=== PATIENT | male | born 1975 | race American Indian/Alaskan Native ===

== ENCOUNTER 2020-04-27 12:53 | Emergency (ER) | payer OTHER ==
--- NOTE | 2020-04-27 14:39 | XRay Report ---
CHEST 2 VIEWS INDICATION / CLINICAL INFORMATION: Chest Pain. COMPARISON: None available. FINDINGS: SUPPORT DEVICES: None. HEART / MEDIASTINUM: No significant abnormality. LUNGS / PLEURA: No significant pulmonary or pleural abnormality. No pneumothorax. ADDITIONAL FINDINGS: No significant additional findings. IMPRESSION: 1. No acute findings. Signer Name: Reg Dickinson MD Signed: 04/27/2020 2:34 PM Workstation Name: [id number]
[2020-04-27 14:40] LABS: Basophils % (Auto) 0.6 % (0.0-1.8); Eosinophils # (Auto) 0.1 K/mm3 (0.0-0.4); Eosinophils % (Auto) 1.7 % (0.0-4.3); Hematocrit 43.6 % (35.5-45.6); Hemoglobin 14.3 gm/dl (11.8-15.2); Lymphocytes # (Auto) 1.8 K/mm3 (1.2-5.4); Lymphocytes % (Auto) 25.9 % (13.4-35.0); Mean Corpuscular HGB Conc 33 % (32-34); Mean Corpuscular Volume 82 fl (84-94); Monocytes # (Auto) 0.4 K/mm3 (0.0-0.8); Monocytes % (Auto) 5.8 % (0.0-7.3); Platelet Count 200 K/mm3 (140-440); Red Blood Count 5.33 M/mm3 (3.65-5.03); Red Cell Distribution Width 13.5 % (13.2-15.2)
[2020-04-27 14:49] LABS: INR 1.11 (0.87-1.13)
[2020-04-27] MEDS ORDERED: MORPHINE 4 MG/1 ML INJ IV ONE (14:52)
[2020-04-27] MEDS ORDERED: ASPIRIN 325 MG TAB PO ONE (14:52)
[2020-04-27 14:58] LABS: BUN/Creatinine Ratio 21; Blood Urea Nitrogen 21 mg/dL (9-20); Calcium 9.1 mg/dL (8.4-10.2); Hemolysis Index 29
[2020-04-27] MEDS ORDERED: ALUM-MAG HYDROXIDE-SIMETHICONE 200-200-20MG/5ML ORAL LIQD 30 ML PO ONE (14:58)
[2020-04-27 17:43] VITALS: BP 179/60
--- NOTE | 2020-04-27 18:28 | Emergency Department Report ---
ED Chest Pain HPI - General Chief Complaint: Chest Pain Stated Complaint: CHEST PAIN/ANXIETY Time Seen by Provider: 04/27/20 14:52 Source: patient Mode of arrival: Stretcher Limitations: No Limitations - History of Present Illness Initial Comments: Mr. Fisher is a 45-year-old male who presents with sudden onset of chest pain while he was working. He has sharp central chest pain 10 out of 10. He also has shortness of breath. Pain is persistent even at rest. Pain is been present for 4 to 5 hours. No fevers history of heart disease. Both parents had heart disease younger than 50s. He denies fever. Denies cough. Patient is a history of anxiety, dyslipidemia, GERD. full time staff interpreter in person was used to obtain history and to provide further and answer questions. MD Complaint: chest pain -: Sudden, hour(s) (Several hours) Onset: during exertion Pain Radiation: none Severity: severe Severity scale (0 -10): 8 Quality: sharp Consistency: constant Improves With: nothing Worsens With: nothing re: dyspnea - Related Data Allergies Allergy/AdvReac Type Severity Reaction Status Date / Time No Known Allergies Allergy Unverified 04/27/20 13:42 Heart Score - HEART Score History: Slightly suspicious EKG: Non-specific Age: 45-65 Risk factors: 1-2 risk factors Troponin: < normal limit HEART Score: 3 ED Review of Systems ROS: Stated complaint: CHEST PAIN/ANXIETY Other details as noted in HPI Comment: All other systems reviewed and negative Constitutional: denies: fever, malaise Respiratory: shortness of breath Cardiovascular: chest pain ED Past Medical Hx - Past Medical History Previous Medical History?: Yes Additional medical history: Acid Reflux, high cholesterol - Surgical History Past Surgical History?: No - Social History Smoking Status: Never Smoker Substance Use Type: None ED Physical Exam - General Limitations: No Limitations General appearance: alert, in no apparent distress, anxious - Head Head exam: Present: atraumatic, normocephalic - Eye Eye exam: Present: normal appearance - ENT ENT exam: Present: mucous membranes moist - Neck Neck exam: Present: normal inspection, full ROM - Respiratory Respiratory exam: Present: normal lung sounds bilaterally. Absent: respiratory distress, wheezes, rales, rhonchi - Cardiovascular Cardiovascular Exam: Present: regular rate, normal rhythm, normal heart sounds. Absent: systolic murmur, diastolic murmur, rubs, gallop - GI/Abdominal GI/Abdominal exam: Present: soft, normal bowel sounds. Absent: distended, tenderness, guarding, rebound - Rectal Rectal exam: Present: deferred - Extremities Exam Extremities exam: Present: normal inspection - Neurological Exam Neurological exam: Present: alert, oriented X3 - Psychiatric Psychiatric exam: Present: normal affect, normal mood - Skin Skin exam: Present: warm, dry, intact, normal color. Absent: rash ED Course Vital Signs 04/27/20 04/27/20 04/27/20 13:35 16:53 17:42 Temperature 98.4 F Pulse Rate 70 63 63 Respiratory 14 13 13 Rate Blood Pressure 104/60 109/60 179/60 [Left] O2 Sat by Pulse 97 98 98 Oximetry ED Medical Decision Making - Lab Data Result diagrams: 04/27/20 14:24 04/27/20 14:24 Laboratory Results - last 24 hr 04/27/20 04/27/20 04/27/20 14:24 14:24 14:24 WBC 6.8 RBC 5.33 H Hgb 14.3 Hct 43.6 MCV 82 L MCH 27 L MCHC 33 RDW 13.5 Plt Count 200 Lymph % (Auto) 25.9 Bailey % (Auto) 5.8 Eos % (Auto) 1.7 Baso % (Auto) 0.6 Lymph # 1.8 Bailey # 0.4 Eos # 0.1 Baso # 0.0 Seg Neutrophils % 66.0 Seg Neutrophils # 4.5 PT 14.1 INR 1.11 Sodium 139 Potassium 4.4 Chloride 107.1 H Carbon Dioxide 22 Anion Gap 14 BUN 21 H Creatinine 1.0 Estimated GFR > 60 BUN/Creatinine Ratio 21 Glucose 91 Calcium 9.1 Troponin T < 0.010 04/27/20 17:43 WBC RBC Hgb Hct MCV MCH MCHC RDW Plt Count Lymph % (Auto) Bailey % (Auto) Eos % (Auto) Baso % (Auto) Lymph # Bailey # Eos # Baso # Seg Neutrophils % Seg Neutrophils # PT INR Sodium Potassium Chloride Carbon Dioxide Anion Gap BUN Creatinine Estimated GFR BUN/Creatinine Ratio Glucose Calcium Troponin T < 0.010 - Radiology Data Radiology results: report reviewed Chest radiograph: No acute findings - Medical Decision Making Chest pain: Atypical for ACS. Patient had persistent chest pain even at rest. Pain relented with morphine and antacid. He was able to eat lunch without difficulty. Troponin x2-. Heart score 3. I have referred him to plastic duplicator. He understands that he should obtain a cardiac stress test within the next week. Also related information to family members including his [id number] on the phone. I used full time staff interpreter to give instructions and education. Critical care attestation.: If time is entered above; I have spent that time in minutes in the direct care of this critically ill patient, excluding procedure time. ED Disposition Clinical Impression: Chest pain Disposition: DC-01 TO HOME OR SELFCARE Is pt being admited?: No Does the pt Need Aspirin: No Condition: Stable Instructions: Chest Pain (ED) Additional Instructions: Consulte al cardilogo la prxima semana para kelsy prueba de esfuerzo cardaco Forms: Work/School Release Form(ED) Print Language: [id number]
== END 2020-04-27 18:49 | disposition home or self-care (01) ==
LOC: ED 12:53
DX: R07.89 Other chest pain (principal)
CPT/HCPCS: 36415; 71046; 80048; 84484; 85025; 85610; 93005; 96374; 99285; J2270